=== PATIENT | male | born 1975 | race Two or more races ===

== ENCOUNTER 2024-08-31 07:23 | Day surgery (SDC) | payer MEDICAID ==
[2024-08-25 15:20] LABS: Urine Bacteria None Seen /hpf (None Seen)
[2024-08-25 15:26] LABS: Basophils # (auto) 0.1 10 ^3/uL (0-0.2); Basophils % (auto) 1.1 % (0.0-2.0); Eosinophils # (auto) 0.2 10 ^3/uL (0-0.8); Eosinophils % (auto) 3.1 % (0.0-7.0); Hematocrit 44.6 % (41.0-53.0); Hemoglobin 15.5 g/dL (13.5-17.5); Lymphocytes # (auto) 2.4 10 ^3/uL (0.4-5.4); Lymphocytes % (auto) 33.8 % (10.0-50.0); Mean Corpuscular Hemoglobin 31.6 pg (28.0-32.0); Mean Corpuscular Hgb Conc. 34.9 g/dL (32.0-36.0); Mean Corpuscular Volume 90.6 fL (80.0-100.0); Monocytes # (auto) 0.8 10 ^3/uL (0-1.3); Monocytes % (auto) 10.8 % (0.0-12.0); Neutrophils # (auto) 3.7 10 ^3/uL (1.6-8.6); Neutrophils % (auto) 51.2 % (37.0-80.0); Nucleated Red Blood Cells % 0.2 %; Platelet Count (auto) 238 10^3/uL (140-450); Red Blood Cells 4.92 10^6/uL (4.5-5.90); Red Cell Distribution Width 12.9 % (11.8-14.3); White Blood Cell 7.2 10^3/uL (4.4-10.8)
[2024-08-25 15:46] LABS: Alanine Aminotransferase 26 U/L (7-40); Albumin 4.7 g/dL (3.2-4.8); Anion Gap 7 (5-15); Aspartate Aminotransferase 19 U/L (13-40); BUN/Creatinine Ratio 14.1 (10.0-20.0); Bilirubin, Total 0.4 mg/dL (0.2-1.0); Blood Urea Nitrogen 14 mg/dL (9-23); Calcium 9.7 mg/dL (8.7-10.4); Carbon Dioxide 26 mmol/L (20-31); Glucose 103 mg/dL (74-106); Potassium 4.3 mmol/L (3.5-5.1); Sodium 141 mmol/L (136-145); Total Protein 7.3 g/dL (5.7-8.2)
[2024-08-25 15:47] LABS: INR 0.96 (0.9-1.15); Partial Thromboplastin Time 33.4 SEC (24.5-34.5); Prothrombin Time 10.2 sec (9.3-11.8)
[2024-08-25 15:48] LABS: Alkaline Phosphatase 135 U/L (46-116); Chloride 108 mmol/L (98-107)
[2024-08-25 15:49] LABS: Urine Blood Negative /uL (Negative); Urine Clarity Clear (Clear); Urine Color Light-Yellow (Yellow); Urine Protein, UAD Negative (Negative); Urine Squamous Epithelial Cell None Seen /hpf (<5); Urine Urobilinogen Normal (Negative); Urine WBC < 1 /HPF (0-3); Urine pH 6.5 (5.0-9.0)
[~2024-08-31] VITALS: Ht 165.1 cm; Wt 77.1 kg
[~2024-08-31 07:23] MED LIST: ASPI1TAB20 PO; CEPH500C PO; CHOL20007 OR; HYDR-4902 PO
[2024-08-31] MEDS ORDERED: KETAMINE 50mg/ML 1ml syringe ONE (09:31)
[2024-08-31] MEDS ORDERED: fentaNYL CITRATE 100 MCG/2 ML VL ONE (09:31)
[2024-08-31] MEDS ORDERED: HYDROmorphone HCL 2 MG/ML VL/or syr ONE (09:31)
[2024-08-31] MEDS ORDERED: ONDANSETRON HCL 4 MG/2 ML VIAL ONE (09:32)
[2024-08-31] MEDS ORDERED: SODIUM CHLORIDE LOCK 50 ML ONE (09:32)
[2024-08-31] MEDS ORDERED: ROCURONIUM 10MG/ML 10ML VIAL IV ONE (09:32)
[2024-08-31] MEDS ORDERED: MIDAZOLAM HCL 2MG/2ML 2ml VIAL (1mg/ml) ONE (09:32)
[2024-08-31] MEDS ORDERED: LIDOCAINE HCL 2% TOP JELLY 5ML TOP ONE (09:32)
[2024-08-31] MEDS ORDERED: PROPOFOL 10 MG/ML 20 ML IV ONE (09:32)
[2024-08-31] MEDS ORDERED: TRANEXAMIC ACID 0 ML ONE (10:20)
[2024-08-31] MEDS: EPINEPHrine HCL 1 MG/1 ML AMP ONE (11:10)
[2024-08-31 12:26] VITALS: PULSE 63; RESP 16; TEMP 98; O2SAT 92
[2024-08-31] MEDS ORDERED: KETOROLAC TROMETH 30 MG/ML 1ML VIAL IV ONE (12:45)
[2024-08-31] MEDS ORDERED: HYDROmorphone HCL 2 MG/ML VL/or syr IV PRN (12:45)
[2024-08-31] MEDS ORDERED: METOCLOPRAMIDE HCL 5MG/ml INJ 2ml VIAL IV ONE (12:45)
[2024-08-31] MEDS ORDERED: MORPHINE SULFATE 4 MG/ML SYR/VIAL IV PRN (12:45)
[2024-08-31] MEDS: HYDROmorphone HCL 2 MG/ML VL/or syr IV PRN (12:52)
[2024-08-31] MEDS ORDERED: MORPHINE SULFATE INJ 2 MG/ml SYRG IV PRN (13:45)
[2024-08-31 14:01] VITALS: BP 147/67; PULSE 71; RESP 15; O2SAT 100
--- NOTE | 2024-08-31 18:18 | DVHOP ---
DATE OF SURGERY: 08/31/2024 PREOPERATIVE DIAGNOSIS: Right shoulder rotator cuff tear. POSTOPERATIVE DIAGNOSIS: Right shoulder rotator cuff tear. PROCEDURE PERFORMED: Right shoulder arthroscopy with rotator cuff repair and subacromial decompression. ANESTHESIA: General with interscalene block. COMPLICATIONS: None. JAVA APPLICATION DEVELOPER: Guanakito Rosenthal PA-C IMPLANTS USED: Medacta All suture anchor x 1, ossio anchor x 1. INDICATION OF PROCEDURE: The patient is a 49-year-old male who presented to the clinic with a history of right shoulder pain. Clinical and radiology evaluation demonstrated near full-thickness rotator cuff tear. He had failed extensive nonoperative management. Surgery in the form of right shoulder arthroscopy with rotator cuff repair, subacromial decompression, and other indicated procedures were discussed with him. Benefits, risks and treatment alternatives were discussed. Specific complications of the surgery such as neurovascular injury, infection, arthrofibrosis, loss of limb or life were discussed. He decided to proceed with surgical options. PROCEDURE IN DETAIL: The patient was identified in the preoperative holding area and the surgical site was marked. The consent was verified. He was brought into the operating room and placed supine on the operating table. General anesthesia was administered. Intravenous antibiotics were given. He was brought up into the beach chair position. All the bony prominences were padded. The extremity was prepped and draped in the usual sterile manner. A timeout was called out to confirm the identity of the patient, the nature of surgery, the site of surgery, the availability of implants, x-rays, and allergies to medications. A standard posterior portal was established. A 30-degree scope was inserted. A standard anterior portal was established, a probe was inserted and the findings were as follows: 1. High-grade partial articular rotator cuff SI tear, near full-thickness in the anterior aspect. 2. Intact biceps tendon. 3. Small undersurface tear of the subscapularis upper third. 4. Intact glenohumeral joint, no chondromalacia. 5. Degenerative labral tears. The subscapularis tear was probed. This was a very small fraying. No repair was necessary. The supraspinatus tear was a near full-thickness tear, small to medium in size. The subacromial space was entered. The tear was identified. This was debrided. After debridement was small-sized tear, approximately 2 cm. I decided to repair with double-row technique. The scope was inserted into the lateral portal. An anterolateral portal was created and a cannula was inserted. The superior portal was created. Drill guide was inserted. Next, a drill was inserted. Next, the anchor was inserted for excellent medial row fixation. All 3 pairs of sutures were passed through the rotator cuff tendon on the medial aspect. The sutures were tied for the medial row. Excellent medial row coverage was noted. All the sutures were now brought again through the anterolateral portal into the ossio anchor. A tap was used to create a small maritime pilot hole. The anchor was then inserted for excellent fixation. Subacromial decompression was completed due to downsloping acromion. 5-6 mm of acromion anterior edge was removed. The skin incisions were closed with nylon. Sterile dressing was applied. The shoulder was placed in a shoulder immobilizer. DISPOSITION: Good. The patient was extubated and taken to the recovery without any complications. PLAN: The plan is to have patient to follow up in 1 week. We will start on physical therapy in 2-3 weeks. MD TYRONE Garsia/ELSIE TID: [id number] RECEIPT: [id number]
== END 2024-08-31 14:20 | disposition home or self-care (01) ==
LOC: SUR 07:23
PROVIDERS: ATTEND Orthopaedic Surgery Sports Medicine
DX: M75.121 Complete rotator cuff tear or rupture of right shoulder, not specified as traumatic (principal); S43.431A Superior glenoid labrum lesion of right shoulder, initial encounter; X58.XXXA Exposure to other specified factors, initial encounter; Y93.89 Activity, other specified; Y92.89 Other specified places as the place of occurrence of the external cause; Y99.8 Other external cause status
CPT/HCPCS: 29826; 29827; 36415; 64415; 80053; 81001; 85025; 85610; 85730; C1713; J0171; J1171; J2250; J2405; J2704; J3010; A4565